=== PATIENT | male | born 1990 | race Caucasian/White ===

== ENCOUNTER 2017-05-20 09:45 | Emergency (ER) | payer OTHER ==
[2017-05-20 09:56] VITALS: BP 129/72; PULSE 63; TEMP 98; BMI 26.3
--- NOTE | 2017-05-20 10:19 | PDOC ---
History of Present Illness - General Chief Complaint: Back Pain Stated Complaint: LOWER BACK PAIN Time Seen by Provider: 05/20/17 10:08 History Source: Patient Exam Limitations: No Limitations - History of Present Illness Initial Comments: 05/20/17 10:13 c/o low back pain after lifting heavy weights at gym yesterday,. Stated weight 405 pounds, did not use weight belt, and felt an immediate pull to his lower waistline and low back. Patient denies numbness and tingling to feet, denies fever, has taken no medication for relief of pain. 05/20/17 10:38 Occurred: reports: just prior to arrival Severity: reports: moderate Pain Location: reports: back Method of Injury: Yes: other (heavy lifting ) Modifying Factors: improves with: None Associated Symptoms (Fall): denies symptoms Past History - Travel Traveled outside of the country in the last 30 days: No Close contact w/someone who was outside of country & ill: No - Past Medical History Allergies/Adverse Reactions: Allergies Allergy/AdvReac Type Severity Reaction Status Date / Time No Known Allergies Allergy Verified 05/20/17 09:50 Home Medications: Ambulatory Orders Cyclobenzaprine HCl 10 mg PO Q8H PRN #14 tablet 05/20/17 Ibuprofen 600 mg PO Q6H PRN #30 tablet 05/20/17 COPD: No - Surgical History Abdominal Surgery: Yes - Suicide/Smoking/Psychosocial Hx Smoking History: Never smoked Information on smoking cessation initiated: No Hx Alcohol Use: No Drug/Substance Use Hx: No Substance Use Type: None Review of Systems - Review of Systems Able to Perform ROS?: Yes Is the patient limited Pashto proficient: Yes Constitutional: Yes: Symptoms Reported Respiratory: No: Symptoms reported Musculoskeletal: Yes: Symptoms Reported, See HPI, Back Pain (low back / waistline ), Muscle Pain Integumentary: Yes: See HPI. No: Symptoms Reported, Bruising All Other Systems: Reviewed and Negative *Physical Exam - Vital Signs Last Vital Signs Temp Pulse Resp BP Pulse Ox 98 F 63 17 129/72 100 05/20/17 09:48 05/20/17 09:48 05/20/17 09:48 05/20/17 09:48 05/20/17 09:48 - Physical Exam General Appearance: Yes: Nourished, Appropriately Dressed, Apparent Distress, Moderate Distress HEENT: positive: TANK, Normal ENT Inspection, TMs Normal, Pharynx Normal Neck: positive: Supple. negative: Tender Respiratory/Chest: positive: Lungs Clear, Normal Breath Sounds Gastrointestinal/Abdominal: positive: Soft Musculoskeletal: positive: Normal Inspection, Muscle Spasm (palpable spasm to paravertebral spinous muscles from approximately T12 and extending to L3-4. Range of motion is somewhat limited upon standing up however is able to flex at waist. No numbness or tingling to hands or feet, no bony tenderness, crepitus or step-offs. No deformity and walks straight.) Extremity: positive: Normal Capillary Refill, Normal Range of Motion, Pelvis Stable Integumentary: positive: Normal Color, Warm Neurologic: positive: printing film stripper II-XII NML intact, Fully Oriented, Alert, Normal Mood/ Affect, Normal Response, Motor Strength 5/5 Progress Note - Progress Note Progress Note: Low back strain/spasm. We'll treat with NSAIDs and cyclobenzaprine *DC/Admit/Observation/Transfer Diagnosis at time of Disposition: Low back strain Qualifiers: Encounter type: initial encounter Qualified Code(s): S39.012A - Strain of muscle, fascia and tendon of lower back, initial encounter - Discharge Dispostion Disposition: HOME Condition at time of disposition: Stable Admit: No - Prescriptions Prescriptions: Cyclobenzaprine HCl 10 mg PO Q8H PRN #14 tablet PRN Reason: spasm Ibuprofen 600 mg PO Q6H PRN #30 tablet PRN Reason: Pain - Referrals Referrals: Hany Anderson MD [Staff Physician] - - Patient Instructions Printed Discharge Instructions: DI for Low Back Pain Additional Instructions: Rest, no heavy lifting or exercise until pain is resolved Hot soaks to neck and low back as often as possible/hot showers or Jacuzzis No massage or therapy until spasm is gone Continue ibuprofen 3-200 mg tablets ( or prescription 600mg tabs) every 6 hours for the next 3 days then as needed for pain and swelling Cyclobenzaprine 1-10mg every 8 hours as needed for spasm If not significant improvement within 24 hours with medication and rest regime, followup with private physician for change in medications and /or therapy. - Post Discharge Activity Forms/Work/School Notes: Back to Work, Back to School
[2017-05-20] MEDS ORDERED: KETOROLAC TROMETHAMINE 60 MG/2 ML VIAL IM ONE (10:35)
[2017-05-20] MEDS ORDERED: CYCLOBENZAPRINE HCL 10 MG TABLET (FP) PO ONE (10:35)
[2017-05-20] MEDS ORDERED: KETOROLAC TROMETHAMINE 60 MG/2 ML VIAL ONE (10:37)
== END 2017-05-20 10:50 | disposition home or self-care (01) ==
LOC: JERFT 09:45 → JER 09:45 → JERFT 10:50
PROC: 3E0233Z Introduction of Anti-inflammatory into Muscle, Percutaneous Approach (ICD-10-PCS; principal; 2017-05-20)
DX: S39.012A Strain of muscle, fascia and tendon of lower back, initial encounter (principal); X50.0XXA Overexertion from strenuous movement or load, initial encounter; Y93.B3 Activity, free weights; Y92.39 Other specified sports and athletic area as the place of occurrence of the external cause; Y99.8 Other external cause status
CPT/HCPCS: 96372; 99281-25